=== PATIENT | female | born 1940 | race Hispanic/Latino ===

== ENCOUNTER 2017-09-29 08:43 | Emergency (ER) | payer OTHER, MEDICARE ==
[~2017-09-29 08:43] MED LIST: AEC81 PO; ATOR-2 PO; CARV3.12 PO; CLOP75TA32 PO; FERR325T22 PO; FURO20TA4 PO; GABA-531 PO; GEMF600T3 PO; GLIP5TAB11 PO; LEVO88TA7 PO; LISI2.5T2 PO; LOSA25TA21 PO; ONDA4TAB9 PO; OXYB5POW MC; RANI150C4 PO; SERT50TA12 PO
[2017-09-29] MEDS ORDERED: HYDROCODONE/ACETAMINOPHEN 10/325 MG TAB ONE (08:52)
== END 2017-09-29 10:40 | disposition home or self-care (01) ==
LOC: EDH 08:43
DX: S80.02XA Contusion of left knee, initial encounter (principal); I25.10 Atherosclerotic heart disease of native coronary artery without angina pectoris; E11.9 Type 2 diabetes mellitus without complications; I10 Essential (primary) hypertension; Z98.890 Other specified postprocedural states; X58.XXXA Exposure to other specified factors, initial encounter; Y93.89 Activity, other specified; Y92.098 Other place in other non-institutional residence as the place of occurrence of the external cause; Y99.8 Other external cause status
CPT/HCPCS: 73562

== ENCOUNTER 2017-10-03 13:17 | Emergency (ER) | payer OTHER, MEDICARE ==
[2017-10-03 13:58] LABS: BASOPHILS % (AUTO) 0.8 % (0.0-5.0); EOSINOPHILS % (AUTO) 3.2 % (0.0-8.0); HEMATOCRIT 32.2 % (36-48); LYMPHOCYTES % (AUTO) 13.8 % (21.0-51.0); MEAN CORPUSCULAR HEMOGLOBIN 33.3 pg (27.0-33.0); MEAN CORPUSCULAR HGB CONC 35.6 g/dL (32.0-36.0); MEAN CORPUSCULAR VOLUME 93.5 fL (79-99); MONOCYTES % (AUTO) 8.8 % (3.0-13.0); NEUTROPHILS % (AUTO) 73.4 % (40.0-77.0); PLATELET COUNT (AUTO) 174 K/uL (130-400); RED BLOOD CELL COUNT(AUTO) 3.44 MIL/uL (4.00-5.50); RED CELL DISTRIBUTION WIDTH 13.5 % (11.0-15.5)
[2017-10-03 14:07] LABS: CREATININE 1.7 mg/dL (0.5-1.5); POTASSIUM 4.4 mmol/L (3.5-5.1)
[2017-10-03 14:13] LABS: INR 1.03 (0.85-1.15); PARTIAL THROMBOPLASTIN TIME 25.9 SEC (26.3-35.5); PROTHROMBIN TIME 10.6 SEC (9.6-11.6)
[2017-10-03 14:25] LABS: ALBUMIN 3.4 g/dL (3.5-5.0); BILIRUBIN,TOTAL 0.7 mg/dL (0.2-1.0); CREATINE KINASE MB 1.2 ng/mL (0.5-3.6); TOTAL PROTEIN, SERUM 6.9 g/dL (6.0-8.3)
[2017-10-03] MEDS ORDERED: NITROGLYCERIN 1GM/1 INCH PACKET TD ONE (15:32)
== END 2017-10-03 17:57 | disposition home or self-care (01) ==
LOC: EDH 13:17
DX: R07.89 Other chest pain (principal); I25.10 Atherosclerotic heart disease of native coronary artery without angina pectoris; E11.9 Type 2 diabetes mellitus without complications; I10 Essential (primary) hypertension; Z95.1 Presence of aortocoronary bypass graft
CPT/HCPCS: 36415; 71045; 80053; 82550; 82553; 83874; 84484; 85025; 85610; 85730; 93005; 94761

== ENCOUNTER → 2017-10-23 | Outpatient (CLI) | payer OTHER, MEDICARE ==
[~2017-10-23] MED LIST changes: +REGADENOSON 0.4 MG/5 ML PF SYG IVP SCH
== END | disposition home or self-care (01) ==
LOC: SHCH 08:58
PROVIDERS: ATTEND Internal Medicine Cardiovascular Disease
DX: I51.7 Cardiomegaly (principal)
CPT/HCPCS: 78452; 93017; 96374; A9500 ×2; J2785

== ENCOUNTER 2019-09-08 09:39 | Emergency (ER) | payer OTHER, MEDICARE ==
[~2019-09-08 09:39] MED LIST changes: -CARV3.12 PO; +CARV6.25 PO; +CHOL400C9 PO; +DOCU-282 PO; +FERR240T6 PO; -FERR325T22 PO; -FURO20TA4 PO; -GEMF600T3 PO; -GLIP5TAB11 PO; +LEVO500T2 PO; -LISI2.5T2 PO; -LOSA25TA21 PO; +MIRA25TA PO; -ONDA4TAB9 PO; -OXYB5POW MC; -RANI150C4 PO; +RANO10003 PO; -REGADENOSON 0.4 MG/5 ML PF SYG IVP SCH; -SERT50TA12 PO
[2019-09-08] MEDS ORDERED: ONDANSETRON HCL 4 MG/2 ML VIAL ONE (10:17)
[2019-09-08 10:35] LABS: BASOPHILS % (AUTO) 0.5 % (0.0-5.0); EOSINOPHILS % (AUTO) 2.2 % (0.0-8.0); LYMPHOCYTES % (AUTO) 12.8 % (21.0-51.0); MEAN CORPUSCULAR HEMOGLOBIN 31.6 pg (27.0-33.0); MEAN CORPUSCULAR HGB CONC 32.8 g/dL (32.0-36.0); MEAN CORPUSCULAR VOLUME 96.4 fL (79-99); MONOCYTES % (AUTO) 10.4 % (3.0-13.0); NEUTROPHILS % (AUTO) 73.8 % (40.0-77.0); PLATELET COUNT (AUTO) 156 K/uL (130-400); RED BLOOD CELL COUNT(AUTO) 3.32 MIL/uL (4.00-5.50); RED CELL DISTRIBUTION WIDTH 12.3 % (11.0-15.5)
[2019-09-08 10:45] LABS: CREATININE 1.8 mg/dL (0.5-1.5); POTASSIUM 4.5 mmol/L (3.5-5.1)
[2019-09-08 10:57] LABS: ALBUMIN 2.9 g/dL (3.5-5.0); BILIRUBIN,TOTAL 0.3 mg/dL (0.2-1.0); TOTAL PROTEIN, SERUM 6.4 g/dL (6.0-8.3)
== END 2019-09-08 12:16 | disposition home or self-care (01) ==
LOC: EDH 09:39
DX: R19.7 Diarrhea, unspecified (principal); I25.10 Atherosclerotic heart disease of native coronary artery without angina pectoris; E11.9 Type 2 diabetes mellitus without complications; I10 Essential (primary) hypertension
CPT/HCPCS: 36415; 80053; 82550; 83690; 84484; 85025; 93005; 96361; 96374; 99284; J2405

== ENCOUNTER 2020-08-20 10:18 | Observation (INO) | payer OTHER, MEDICARE ==
[~2020-08-20] VITALS: Ht 172.7 cm; Wt 103.9 kg
[2020-08-20 10:41] LABS: BASOPHILS % (AUTO) 0.5 % (0.0-5.0); EOSINOPHILS % (AUTO) 0.3 % (0.0-8.0); HEMATOCRIT 33.8 % (36-48); LYMPHOCYTES % (AUTO) 7.3 % (21.0-51.0); MEAN CORPUSCULAR HEMOGLOBIN 28.4 pg (27.0-33.0); MEAN CORPUSCULAR HGB CONC 32.5 g/dL (32.0-36.0); MEAN CORPUSCULAR VOLUME 87.1 fL (79-99); MONOCYTES % (AUTO) 7.7 % (3.0-13.0); NEUTROPHILS % (AUTO) 83.7 % (40.0-77.0); PLATELET COUNT (AUTO) 162 K/uL (130-400); RED BLOOD CELL COUNT(AUTO) 3.88 MIL/uL (4.00-5.50); RED CELL DISTRIBUTION WIDTH 14.6 % (11.0-15.5); WHITE BLOOD COUNT (AUTO) 12.1 K/uL (4.8-10.8)
[2020-08-20 10:55] LABS: POTASSIUM 3.9 mmol/L (3.5-5.1)
[2020-08-20 10:56] LABS: INR 1.24 (0.85-1.15); PROTHROMBIN TIME 13.3 SEC (9.6-11.6)
[2020-08-20 10:57] LABS: PARTIAL THROMBOPLASTIN TIME 29.2 SEC (26.3-35.5)
[2020-08-20 11:04] LABS: BILIRUBIN,TOTAL 0.5 mg/dL (0.2-1.0); TOTAL PROTEIN, SERUM 6.7 g/dL (6.0-8.3)
[2020-08-20 11:50] LABS: BILIRUBIN,URINE NEGATIVE (NEGATIVE); COLOR,URINE YELLOW (YELLOW); GLUCOSE, URINE (UA) NEGATIVE (NEGATIVE); KETONES,URINE NEGATIVE (NEGATIVE); LEUKOCYTE ESTERASE ,URINE SMALL (NEGATIVE); NITRATE,URINE NEGATIVE (NEGATIVE); OCCULT BLOOD,URINE SMALL (NEGATIVE); PROTEIN,URINE NEGATIVE (NEGATIVE); UROBILINOGEN,URINE 0.2 mg/dL (0.2-1.0)
[2020-08-20 11:52] LABS: APPEARANCE,URINE CLOUDY (CLEAR)
[2020-08-20 12:04] LABS: BACTERIA,URINE Many /HPF (None Seen)
[2020-08-20] MEDS ORDERED: ACETAMINOPHEN 325 MG TAB ONE (13:22)
[2020-08-20] MEDS ORDERED: CEFTRIAXONE 1G VIAL ONE (14:16)
[2020-08-20] MEDS ORDERED: 0.9%NACL 50ML 50 ML IV ONE (14:17)
[2020-08-20] MEDS ORDERED: POTASSIUM CHLORIDE 10% ELIXIR 20 MEQ/15 ML UDCUP PO PRN (15:15)
[2020-08-20] MEDS ORDERED: MAGNESIUM 2GM PREMIX 50ML 50 ML IV PRN (15:15)
[2020-08-20] MEDS ORDERED: POTASSIUM CHLORIDE 20MEQ/100ML 100 ML IV PRN ×2 (15:15)
[2020-08-20] MEDS ORDERED: LIDOCAINE HCL-MPF 1% 2ML VIAL IV PRN ×2 (15:15)
[2020-08-20] MEDS ORDERED: GLUCAGON 1MG KIT 1 MG ML IM PRN (15:15)
[2020-08-20] MEDS: PANTOPRAZOLE 40 MG TAB DR PO SCH (15:15)
[2020-08-20] MEDS ORDERED: DEXTROSE 50%-WATER 50 ML DISP.SYRIN IV PRN (15:15)
[2020-08-20] MEDS ORDERED: ONDANSETRON 4MG INJ IVP PRN (15:30)
[2020-08-20] MEDS: CARVEDILOL 6.25 MG TABLET PO SCH (17:00)
[2020-08-20] MEDS ORDERED: CARVEDILOL 6.25 MG TABLET PO ONE (17:54)
[2020-08-20] MEDS: ATORVASTATIN 40 MG TABLET PO SCH (21:00)
[2020-08-20] MEDS ORDERED: ATORVASTATIN 40 MG TABLET ONE (21:10)
[2020-08-21] VITALS (7 sets, daily range): BP systolic 135–166; BP diastolic 42–81
[2020-08-21] MEDS ORDERED: CALCIUM CARB 500MG CHEW TAB ONE (01:58)
[2020-08-21] MEDS ORDERED: CALCIUM CARB 500MG CHEW TAB PO PRN (02:00)
[2020-08-21] MEDS: ACETAMINOPHEN 325 MG TAB PO PRN ×2 (02:05→16:41)
[2020-08-21 02:17] LABS: HEMATOCRIT 35.4 % (36-48); MEAN CORPUSCULAR HEMOGLOBIN 28.1 pg (27.0-33.0); MEAN CORPUSCULAR HGB CONC 31.4 g/dL (32.0-36.0); MEAN CORPUSCULAR VOLUME 89.6 fL (79-99); RED BLOOD CELL COUNT(AUTO) 3.95 MIL/uL (4.00-5.50); RED CELL DISTRIBUTION WIDTH 14.6 % (11.0-15.5); WHITE BLOOD COUNT (AUTO) 8.2 K/uL (4.8-10.8)
[2020-08-21 02:30] LABS: HEMOGLOBIN A1C 9.6 % (4.0-6.0)
[2020-08-21 02:40] LABS: ALBUMIN 3.1 g/dL (3.5-5.0); BILIRUBIN,TOTAL 0.4 mg/dL (0.2-1.0); CREATININE 2.2 mg/dL (0.5-1.5); MAGNESIUM 1.6 mg/dL (1.80-2.40); POTASSIUM 3.8 mmol/L (3.5-5.1); THYROID STIMULATING HORMONE 0.35 uIU/mL (0.36-3.74); TOTAL PROTEIN, SERUM 7.2 g/dL (6.0-8.3)
[2020-08-21] MEDS ORDERED: LINA5TAB PO (02:58)
[2020-08-21] MEDS ORDERED: CYAN250014 PO (02:58)
[2020-08-21] MEDS ORDERED: SACU1TAB PO (02:58)
[2020-08-21] MEDS ORDERED: PANT40TA55 PO (02:58)
[2020-08-21] MEDS ORDERED: RIVA2.5T PO (02:58)
[2020-08-21] MEDS ORDERED: CALC-1009 PO (02:58)
[2020-08-21] MEDS: LEVOTHYROXINE 88 MCG TABLET PO SCH (05:52)
[2020-08-21] MEDS: KCL 20 MEQ ERTAB PO PRN ×2 (05:53→18:59)
[2020-08-21] MEDS: INSULIN HUMULIN R 100 UNIT/ML 3ML SQ SCH ×4 (06:42→20:51)
[2020-08-21] MEDS: **HM** ENTRESTO 24-26MG PO SCH ×2 (09:00→20:50)
[2020-08-21] MEDS: **HM** MYRBETRIQ 25MG PO SCH (09:00)
[2020-08-21] MEDS: **HM** VIT D3 400 UNITS PO SCH (09:00)
[2020-08-21] MEDS: PANTOPRAZOLE 40 MG TAB DR PO SCH (10:52)
[2020-08-21] MEDS: CA 600MG+VIT D 400 UNIT TAB 1 TAB TABLET PO SCH (10:52)
[2020-08-21] MEDS: CYANOCOBALAMIN (VITAMIN B-12) 1,000 MCG TABLET PO SCH (10:52)
[2020-08-21] MEDS: CEFTRIAXONE 1G VIAL IV SCH (10:53)
[2020-08-21] MEDS: LINAGLIPTIN 5 MG TABLET PO SCH (10:53)
[2020-08-21] MEDS: GABAPENTIN 300 MG CAPSULE PO SCH ×2 (10:53→20:49)
[2020-08-21] MEDS: ENOXAPARIN SODIUM 40 MG/0.4 ML SYRINGE SQ SCH (10:54)
[2020-08-21] MEDS: CARVEDILOL 6.25 MG TABLET PO SCH ×2 (11:05→16:35)
[2020-08-21] MEDS: ATORVASTATIN 40 MG TABLET PO SCH (20:49)
[2020-08-21] MEDS ORDERED: DOCUSATE SODIUM 100 MG CAP PO SCH (21:00)
[2020-08-22 03:25] VITALS: BP 136/63
[2020-08-22 06:14] LABS: BASOPHILS % (AUTO) 1.1 % (0.0-5.0); EOSINOPHILS % (AUTO) 4.4 % (0.0-8.0); HEMATOCRIT 31.3 % (36-48); LYMPHOCYTES % (AUTO) 30.4 % (21.0-51.0); MEAN CORPUSCULAR HEMOGLOBIN 27.8 pg (27.0-33.0); MEAN CORPUSCULAR HGB CONC 31.9 g/dL (32.0-36.0); MEAN CORPUSCULAR VOLUME 86.9 fL (79-99); MONOCYTES % (AUTO) 17.1 % (3.0-13.0); NEUTROPHILS % (AUTO) 46.8 % (40.0-77.0); PLATELET COUNT (AUTO) 137 K/uL (130-400); RED CELL DISTRIBUTION WIDTH 14.6 % (11.0-15.5); WHITE BLOOD COUNT (AUTO) 5.6 K/uL (4.8-10.8)
[2020-08-22 06:31] LABS: CREATININE 1.7 mg/dL (0.5-1.5); MAGNESIUM 1.7 mg/dL (1.80-2.40); POTASSIUM 4.8 mmol/L (3.5-5.1)
[2020-08-22] MEDS: LEVOTHYROXINE 88 MCG TABLET PO SCH (07:03)
[2020-08-22] MEDS: INSULIN HUMULIN R 100 UNIT/ML 3ML SQ SCH (07:05)
[2020-08-22 08:06] VITALS: BP 129/66
[2020-08-22] MEDS: **HM** ENTRESTO 24-26MG PO SCH (09:00)
[2020-08-22] MEDS: **HM** MYRBETRIQ 25MG PO SCH (09:00)
[2020-08-22] MEDS: **HM** VIT D3 400 UNITS PO SCH (09:00)
[2020-08-22] MEDS: CYANOCOBALAMIN (VITAMIN B-12) 1,000 MCG TABLET PO SCH (11:09)
[2020-08-22] MEDS: CEFTRIAXONE 1G VIAL IV SCH (11:09)
[2020-08-22] MEDS: PANTOPRAZOLE 40 MG TAB DR PO SCH (11:10)
[2020-08-22] MEDS: LINAGLIPTIN 5 MG TABLET PO SCH (11:10)
[2020-08-22] MEDS: GABAPENTIN 300 MG CAPSULE PO SCH (11:10)
[2020-08-22] MEDS: CARVEDILOL 6.25 MG TABLET PO SCH (11:11)
[2020-08-22] MEDS: CA 600MG+VIT D 400 UNIT TAB 1 TAB TABLET PO SCH (11:11)
[2020-08-22] MEDS: ENOXAPARIN SODIUM 40 MG/0.4 ML SYRINGE SQ SCH (11:12)
[2020-08-22 11:21] VITALS: BP 142/48
[2020-08-22] MEDS ORDERED: AMOX-426 PO (11:22)
[2020-08-22] MEDS ORDERED: RIVAROXABAN 2.5 MG TABLET PO SCH (21:00)
[2021-03-12] MEDS ORDERED: LINA5TAB PO (09:34)
[2021-03-12] MEDS ORDERED: CARV25TA PO (09:34)
[2021-03-12] MEDS ORDERED: LEVO88CA4 PO (09:34)
[2021-03-12] MEDS ORDERED: OMEP40CA21 PO (09:34)
[2021-03-12] MEDS ORDERED: HYDR12.54 PO (09:34)
== END 2020-08-22 14:15 | disposition home or self-care (01) ==
LOC: EDH 10:18 → EDHIP 15:16 → 3BH 08-21 00:21
PROVIDERS: ADMIT Internal Medicine; ATTEND Internal Medicine
DX: R42 Dizziness and giddiness (principal); Z20.822 Contact with and (suspected) exposure to COVID-19; N39.0 Urinary tract infection, site not specified; I13.0 Hypertensive heart and chronic kidney disease with heart failure and stage 1 through stage 4 chronic kidney disease, or unspecified chronic kidney disease; E11.22 Type 2 diabetes mellitus with diabetic chronic kidney disease; I50.43 Acute on chronic combined systolic (congestive) and diastolic (congestive) heart failure; N18.9 Chronic kidney disease, unspecified; I25.10 Atherosclerotic heart disease of native coronary artery without angina pectoris; N17.9 Acute kidney failure, unspecified; E78.5 Hyperlipidemia, unspecified; N32.81 Overactive bladder; E11.51 Type 2 diabetes mellitus with diabetic peripheral angiopathy without gangrene; M47.812 Spondylosis without myelopathy or radiculopathy, cervical region; I25.5 Ischemic cardiomyopathy; E66.01 Morbid (severe) obesity due to excess calories; E03.9 Hypothyroidism, unspecified; I25.2 Old myocardial infarction; Z95.1 Presence of aortocoronary bypass graft; Z98.1 Arthrodesis status; Z79.01 Long term (current) use of anticoagulants; Z79.84 Long term (current) use of oral hypoglycemic drugs; Z79.899 Other long term (current) drug therapy; W01.198A Fall on same level from slipping, tripping and stumbling with subsequent striking against other object, initial encounter; Y93.89 Activity, other specified; Y92.002 Bathroom of unspecified non-institutional (private) residence as the place of occurrence of the external cause; Z68.34 Body mass index [BMI] 34.0-34.9, adult
CPT/HCPCS: 36415 ×3; 70450; 71045; 72125; 80048; 80053 ×2; 80061; 81001; 82550; 82948 ×8; 83036; 83605; 83735 ×2; 84443; 84484 ×3; 85025 ×2; 85027; 85610; 85730; 87040 ×2; 87088; 87426; 93005; 96365; 96366; 96372 ×2; 96375; 96376; 99285; G0378 ×47; J0696 ×3; J1650 ×2; J1815 ×2; J3475; U0003

== ENCOUNTER 2020-09-09 21:20 | Inpatient (IN) | payer OTHER, MEDICARE ==
[~2020-09-09] VITALS: Ht 172.7 cm; Wt 107.0 kg
[~2020-09-09 21:20] MED LIST changes: -AEC81 PO; +AMOX-426 PO; +CALC-1009 PO; -CLOP75TA32 PO; +CYAN250014 PO; -FERR240T6 PO; -LEVO500T2 PO; -LEVO88TA7 PO; +LINA5TAB PO; +PANT40TA55 PO; -RANO10003 PO; +RIVA2.5T PO; +SACU1TAB PO
[2020-09-09] MEDS ORDERED: ONDANSETRON 4MG INJ ONE ×2 (21:29→22:30)
[2020-09-09] MEDS ORDERED: 0.9%NACL 1000ML 1,000 ML IV ONE (21:30)
[2020-09-09 21:57] LABS: ABG BASE EXCESS -1.4 mmol/L (-2.0-3.0); ABG HCO3 22.1 mmol/L (21.0-28.0); ABG OXYGEN SATURATION 95.3 % (95.0-99.0); ABG PCO2 34 mmHg (32-45)
[2020-09-09 22:09] LABS: BASOPHILS % (AUTO) 0.4 % (0.0-5.0); MEAN CORPUSCULAR HEMOGLOBIN 28.7 pg (27.0-33.0); MEAN CORPUSCULAR HGB CONC 33.1 g/dL (32.0-36.0); MEAN CORPUSCULAR VOLUME 86.7 fL (79-99); MONOCYTES % (AUTO) 7.3 % (3.0-13.0); NEUTROPHILS % (AUTO) 84.7 % (40.0-77.0); PLATELET COUNT (AUTO) 151 K/uL (130-400); RED BLOOD CELL COUNT(AUTO) 3.69 MIL/uL (4.00-5.50); RED CELL DISTRIBUTION WIDTH 14.4 % (11.0-15.5); WHITE BLOOD COUNT (AUTO) 15.3 K/uL (4.8-10.8)
[2020-09-09 22:20] LABS: APPEARANCE,URINE Clear (CLEAR); BILIRUBIN,URINE Negative (NEGATIVE); COLOR,URINE Yellow (YELLOW); GLUCOSE, URINE (UA) 250 mg/dL (NEGATIVE); KETONES,URINE Negative (NEGATIVE); LEUKOCYTE ESTERASE ,URINE Moderate (NEGATIVE); NITRATE,URINE Negative (NEGATIVE); OCCULT BLOOD,URINE Trace (NEGATIVE); PH,URINE 5.5 (5.0-8.0); PROTEIN,URINE Negative (NEGATIVE); UROBILINOGEN,URINE 0.2 mg/dL (0.2-1.0)
[2020-09-09 22:21] LABS: CREATININE 1.8 mg/dL (0.5-1.5)
[2020-09-09 22:25] LABS: ALBUMIN 3.2 g/dL (3.5-5.0); BILIRUBIN,TOTAL 0.3 mg/dL (0.2-1.0); TOTAL PROTEIN, SERUM 6.9 g/dL (6.0-8.3)
[2020-09-09 22:29] LABS: INR 1.34 (0.85-1.15); PROTHROMBIN TIME 14.2 SEC (9.6-11.6)
[2020-09-09 22:31] LABS: PARTIAL THROMBOPLASTIN TIME 34.5 SEC (26.3-35.5)
[2020-09-09] MEDS ORDERED: ACETAMINOPHEN 500 MG TABLET ONE (22:42)
[2020-09-09 22:56] LABS: BACTERIA,URINE Few /HPF (None Seen)
[2020-09-09] MEDS ORDERED: CEFTRIAXONE 1G VIAL ONE (23:00)
[2020-09-10] VITALS (7 sets, daily range): BP systolic 97–137; BP diastolic 44–56
[2020-09-10] MEDS ORDERED: LORAZEPAM 2 MG/ML 1 ML VIAL ONE (00:10)
[2020-09-10] MEDS ORDERED: 0.9%NACL 1000ML 1,000 ML IV SCH (02:15)
[2020-09-10] MEDS ORDERED: GLUCAGON 1MG KIT 1 MG ML IM PRN (02:15)
[2020-09-10] MEDS ORDERED: DEXTROSE 50%-WATER 50 ML DISP.SYRIN IV PRN (02:15)
[2020-09-10] MEDS ORDERED: AZITHROMYCIN 500MG+NS 250ML 250 ML IV SCH (02:30)
[2020-09-10 03:56] LABS: BASOPHILS % (AUTO) 0.4 % (0.0-5.0); HEMATOCRIT 30.7 % (36-48); LYMPHOCYTES % (AUTO) 3.8 % (21.0-51.0); MEAN CORPUSCULAR HEMOGLOBIN 27.7 pg (27.0-33.0); MEAN CORPUSCULAR HGB CONC 31.9 g/dL (32.0-36.0); MEAN CORPUSCULAR VOLUME 86.7 fL (79-99); MONOCYTES % (AUTO) 8.7 % (3.0-13.0); PLATELET COUNT (AUTO) 151 K/uL (130-400); RED BLOOD CELL COUNT(AUTO) 3.54 MIL/uL (4.00-5.50); RED CELL DISTRIBUTION WIDTH 14.3 % (11.0-15.5); WHITE BLOOD COUNT (AUTO) 25.5 K/uL (4.8-10.8)
[2020-09-10 04:10] LABS: ALBUMIN 2.8 g/dL (3.5-5.0); BILIRUBIN,TOTAL 0.5 mg/dL (0.2-1.0); CREATININE 2.1 mg/dL (0.5-1.5); POTASSIUM 3.9 mmol/L (3.5-5.1); TOTAL PROTEIN, SERUM 6.2 g/dL (6.0-8.3)
[2020-09-10] MEDS: INSULIN R PO SS1 SQ SCH ×4 (06:00→20:59)
[2020-09-10] MEDS ORDERED: INSLAN SQ (10:35)
[2020-09-10] MEDS ORDERED: CEFTRIAXONE 1G VIAL IVP SCH (12:00)
[2020-09-10] MEDS: HEPARIN 5,000 UNIT VIAL SQ SCH (14:00)
[2020-09-10] MEDS ORDERED: PHARMACY COMMUNICATION MISC SCH (14:45)
[2020-09-10] MEDS ORDERED: VANCOMYCIN PROTOCOL PER PHARMACY IV SCH (15:15)
[2020-09-10] MEDS: CARVEDILOL 6.25 MG TABLET PO SCH (16:29)
[2020-09-10] MEDS: ZOSYN 3.375GM+NS 50ML 50 ML IV SCH (16:29)
[2020-09-10] MEDS: PANTOPRAZOLE 40 MG TAB DR PO SCH (16:32)
[2020-09-10] MEDS ORDERED: BENZOCAINE/MENTH/CETYLPYRD CL 1 EACH LOZENGE MM PRN (18:15)
[2020-09-10] MEDS ORDERED: VANCOMYCIN 1G 2 GM in 0.9% NACL 500ML IV.SOLN 500 ML IV ONE (20:00)
[2020-09-10] MEDS: ATORVASTATIN 40 MG TABLET PO SCH (20:58)
[2020-09-10] MEDS ORDERED: NON-FORMULARY MEDICATION 1 EACH (Atorvastatin Calcium 80 MG) PO SCH (21:00)
[2020-09-11] MEDS: HEPARIN 5,000 UNIT VIAL SQ SCH ×2 (02:32→14:12)
[2020-09-11] MEDS: ZOSYN 3.375GM+NS 50ML 50 ML IV SCH ×2 (02:32→14:00)
[2020-09-11 03:09] VITALS: BP 132/56
[2020-09-11 04:18] LABS: HEMATOCRIT 27.8 % (36-48); MEAN CORPUSCULAR HEMOGLOBIN 28.8 pg (27.0-33.0); MEAN CORPUSCULAR HGB CONC 33.1 g/dL (32.0-36.0); MEAN CORPUSCULAR VOLUME 87.1 fL (79-99); RED BLOOD CELL COUNT(AUTO) 3.19 MIL/uL (4.00-5.50); RED CELL DISTRIBUTION WIDTH 14.6 % (11.0-15.5); WHITE BLOOD COUNT (AUTO) 11.8 K/uL (4.8-10.8)
[2020-09-11 04:28] LABS: CRP QUANTITATIVE 94.7 mg/L (0.00-9.0)
[2020-09-11] MEDS: INSULIN R PO SS1 SQ SCH ×4 (05:49→20:45)
[2020-09-11 08:40] VITALS: BP 117/59
[2020-09-11] MEDS: CYANOCOBALAMIN (VITAMIN B-12) 1,000 MCG TABLET PO SCH (08:46)
[2020-09-11] MEDS: CA 600MG+VIT D 400 UNIT TAB 1 TAB TABLET PO SCH (08:46)
[2020-09-11] MEDS: PANTOPRAZOLE 40 MG TAB DR PO SCH (08:53)
[2020-09-11] MEDS: CARVEDILOL 6.25 MG TABLET PO SCH ×2 (08:53→16:56)
[2020-09-11] MEDS: INSULIN GLARGINE 100 UNITS/ML 10 ML VIAL SQ SCH (08:55)
[2020-09-11] MEDS: (Mirabegron (Myrbetriq) 25 MG) PO SCH (09:00)
[2020-09-11] MEDS ORDERED: MIRABEGRON 25 MG PO SCH (09:00)
[2020-09-11] MEDS ORDERED: NON-FORMULARY MEDICATION 1 EACH (Cyanocobalamin (Vitamin B-12) (Vitamin B12) 1,000 MCG) PO SCH (09:00)
[2020-09-11] MEDS ORDERED: PANTOPRAZOLE 40 MG TAB DR PO SCH (09:00)
[2020-09-11 12:00] VITALS: BP 126/48
[2020-09-11 16:00] VITALS: BP 149/58
[2020-09-11] MEDS ORDERED: VANCOMYCIN 500MG+NS 100ML 100 ML IV SCH (18:00)
[2020-09-11 20:00] VITALS: BP 150/64
[2020-09-11] MEDS: ATORVASTATIN 40 MG TABLET PO SCH (20:47)
[2020-09-12] VITALS (7 sets, daily range): BP systolic 109–167; BP diastolic 46–61
[2020-09-12] MEDS ORDERED: ACETAMINOPHEN 325 MG TAB PO PRN ×2 (02:30)
[2020-09-12] MEDS ORDERED: ONDANSETRON 4MG INJ IVP PRN (02:30)
[2020-09-12] MEDS ORDERED: ONDANSETRON 4MG INJ ONE (02:36)
[2020-09-12] MEDS: ZOSYN 3.375GM+NS 50ML 50 ML IV SCH (02:42)
[2020-09-12] MEDS: HEPARIN 5,000 UNIT VIAL SQ SCH ×2 (02:42→16:38)
[2020-09-12] MEDS: ACETAMINOPHEN 325 MG TAB PO PRN ×2 (02:47→16:19)
[2020-09-12 04:58] LABS: MEAN CORPUSCULAR HEMOGLOBIN 28.6 pg (27.0-33.0); MEAN CORPUSCULAR HGB CONC 33.2 g/dL (32.0-36.0); MEAN CORPUSCULAR VOLUME 86.2 fL (79-99); RED BLOOD CELL COUNT(AUTO) 3.25 MIL/uL (4.00-5.50); RED CELL DISTRIBUTION WIDTH 14.5 % (11.0-15.5); WHITE BLOOD COUNT (AUTO) 9.2 K/uL (4.8-10.8)
[2020-09-12 05:12] LABS: CREATININE 1.6 mg/dL (0.5-1.5); MAGNESIUM 1.4 mg/dL (1.80-2.40); POTASSIUM 3.9 mmol/L (3.5-5.1)
[2020-09-12] MEDS: INSULIN R PO SS1 SQ SCH ×4 (05:38→21:07)
[2020-09-12] MEDS: CA 600MG+VIT D 400 UNIT TAB 1 TAB TABLET PO SCH (09:51)
[2020-09-12] MEDS: PANTOPRAZOLE 40 MG TAB DR PO SCH (09:51)
[2020-09-12] MEDS: CYANOCOBALAMIN (VITAMIN B-12) 1,000 MCG TABLET PO SCH (09:51)
[2020-09-12] MEDS: CARVEDILOL 6.25 MG TABLET PO SCH ×2 (09:52→16:37)
[2020-09-12] MEDS: INSULIN GLARGINE 100 UNITS/ML 10 ML VIAL SQ SCH (09:58)
[2020-09-12] MEDS: (Mirabegron (Myrbetriq) 25 MG) PO SCH (09:58)
[2020-09-12] MEDS ORDERED: CEFTRIAXONE 500MG VIAL IV SCH (14:30)
[2020-09-12] MEDS ORDERED: LACTATED RINGERS 1000ML 1,000 ML IV SCH (14:30)
[2020-09-12] MEDS: ATORVASTATIN 40 MG TABLET PO SCH (21:03)
[2020-09-13 04:00] VITALS: BP 156/72
[2020-09-13] MEDS: HEPARIN 5,000 UNIT VIAL SQ SCH ×2 (04:31→13:33)
[2020-09-13 06:03] LABS: ALBUMIN 2.5 g/dL (3.5-5.0); BILIRUBIN,TOTAL 0.4 mg/dL (0.2-1.0); CREATININE 1.6 mg/dL (0.5-1.5); POTASSIUM 3.9 mmol/L (3.5-5.1)
[2020-09-13] MEDS: INSULIN R PO SS1 SQ SCH ×3 (06:09→16:30)
[2020-09-13] MEDS ORDERED: SACU1TAB PO (07:52)
[2020-09-13] MEDS: CA 600MG+VIT D 400 UNIT TAB 1 TAB TABLET PO SCH (07:53)
[2020-09-13] MEDS: PANTOPRAZOLE 40 MG TAB DR PO SCH (07:54)
[2020-09-13] MEDS: (Mirabegron (Myrbetriq) 25 MG) PO SCH (07:54)
[2020-09-13] MEDS: CARVEDILOL 6.25 MG TABLET PO SCH ×2 (07:54→16:43)
[2020-09-13] MEDS: CYANOCOBALAMIN (VITAMIN B-12) 1,000 MCG TABLET PO SCH (07:54)
[2020-09-13 08:00] VITALS: BP 173/81
[2020-09-13] MEDS ORDERED: CEFTRIAXONE 1G VIAL IV SCH (09:00)
[2020-09-13] MEDS: INSULIN GLARGINE 100 UNITS/ML 10 ML VIAL SQ SCH (09:00)
[2020-09-13 12:00] VITALS: BP 154/68
[2020-09-13 13:14] LABS: INR 1.08 (0.85-1.15); PROTHROMBIN TIME 11.7 SEC (9.6-11.6)
[2020-09-13] MEDS ORDERED: RIVA2.5T PO (15:40)
[2020-09-13 16:00] VITALS: BP 180/64
[2020-09-13 16:43] VITALS: BP_SYST 180
[2020-09-13] MEDS ORDERED: **HM**(Sacubitril/Valsartan (Entresto 24 mg-26 mg Tablet PO SCH (21:00)
[2020-09-13] MEDS ORDERED: RIVAROXABAN 2.5 MG TABLET PO SCH (21:00)
[2021-03-12] MEDS ORDERED: LEVO88CA4 PO (09:34)
[2021-03-12] MEDS ORDERED: LINA5TAB PO (09:34)
[2021-03-12] MEDS ORDERED: HYDR12.54 PO (09:34)
[2021-03-12] MEDS ORDERED: CARV25TA PO (09:34)
[2021-03-12] MEDS ORDERED: OMEP40CA21 PO (09:34)
== END 2020-09-13 17:21 | DRG 690 ==
LOC: EDH 21:20 → EDHIP 23:49 → OBSVTOIN 23:49 → 2AH 09-10 00:44 → 4CH 09-11 22:05
PROVIDERS: ADMIT Internal Medicine Critical Care Medicine; ATTEND Internal Medicine Critical Care Medicine
PROC: 02HV33Z Insertion of Infusion Device into Superior Vena Cava, Percutaneous Approach (ICD-10-PCS; principal; 2020-09-13)
DX: N39.0 Urinary tract infection, site not specified (principal); R78.81 Bacteremia; E11.9 Type 2 diabetes mellitus without complications; N32.81 Overactive bladder; Z20.822 Contact with and (suspected) exposure to COVID-19; E66.9 Obesity, unspecified; E78.5 Hyperlipidemia, unspecified; G89.29 Other chronic pain; K21.9 Gastro-esophageal reflux disease without esophagitis; B96.89 Other specified bacterial agents as the cause of diseases classified elsewhere; I10 Essential (primary) hypertension; I25.10 Atherosclerotic heart disease of native coronary artery without angina pectoris; Z79.01 Long term (current) use of anticoagulants; Z68.35 Body mass index [BMI] 35.0-35.9, adult; Z79.4 Long term (current) use of insulin; Z79.899 Other long term (current) drug therapy
CPT/HCPCS: 36415; 36600; 70450; 71045; 80048; 80053; 81001; 82550; 82803; 82948; 83605; 83690; 83735; 84145; 84484; 85025; 85027; 85610; 85730; 86140; 87040; 87077; 87088; 87186; 87426; 87804; 92610; 93005; 93306; 93356; 97039; G0378; J0456; J0696; J1644; J1815; J2060; J2405; J2543; J3370; J7030; J7040; U0003

== ENCOUNTER → 2021-01-10 | Outpatient (CLI) | payer OTHER, MEDICARE ==
[~2021-01-10] MED LIST changes: -AMOX-426 PO; -CHOL400C9 PO; -DOCU-282 PO; -GABA-531 PO; +INSLAN SQ; -LINA5TAB PO
== END | disposition home or self-care (01) ==
LOC: RAH 10:38
PROVIDERS: ATTEND Internal Medicine
DX: L97.509 Non-pressure chronic ulcer of other part of unspecified foot with unspecified severity (principal); L03.115 Cellulitis of right lower limb; M79.604 Pain in right leg; M79.605 Pain in left leg; I70.293 Other atherosclerosis of native arteries of extremities, bilateral legs
CPT/HCPCS: 93925

== ENCOUNTER 2021-03-13 05:36 | Day surgery (SDC) | payer OTHER, MEDICARE ==
[2021-03-07 14:32] LABS: BASOPHILS % (AUTO) 0.7 % (0.0-5.0); EOSINOPHILS % (AUTO) 4.5 % (0.0-8.0); HEMATOCRIT 33.7 % (36-48); LYMPHOCYTES % (AUTO) 20.5 % (21.0-51.0); MEAN CORPUSCULAR HEMOGLOBIN 28.8 pg (27.0-33.0); MEAN CORPUSCULAR VOLUME 89.9 fL (79-99); MONOCYTES % (AUTO) 9.6 % (3.0-13.0); NEUTROPHILS % (AUTO) 64.4 % (40.0-77.0); PLATELET COUNT (AUTO) 187 K/uL (130-400); RED BLOOD CELL COUNT(AUTO) 3.75 MIL/uL (4.00-5.50); WHITE BLOOD COUNT (AUTO) 9.2 K/uL (4.8-10.8)
[2021-03-07 14:33] LABS: APPEARANCE,URINE Turbid (CLEAR); BILIRUBIN,URINE Negative (NEGATIVE); COLOR,URINE Yellow (YELLOW); GLUCOSE, URINE (UA) Negative (NEGATIVE); KETONES,URINE Negative (NEGATIVE); LEUKOCYTE ESTERASE ,URINE Large (NEGATIVE); NITRATE,URINE Positive (NEGATIVE); OCCULT BLOOD,URINE Small (NEGATIVE); PH,URINE 5.5 (5.0-8.0); PROTEIN,URINE Trace mg/dL (NEGATIVE); UROBILINOGEN,URINE 0.2 mg/dL (0.2-1.0)
[2021-03-07 14:40] LABS: INR 1.14 (0.85-1.15); PROTHROMBIN TIME 12.3 SEC (9.6-11.6)
[2021-03-07 14:42] LABS: PARTIAL THROMBOPLASTIN TIME 33.5 SEC (26.3-35.5)
[2021-03-07 14:45] LABS: BACTERIA,URINE Many /HPF (None Seen); MUCUS,URINE Few LPF (None Seen); SQUAMOUS EPITHELIAL CELL,UR Few /HPF (0-2); WBC,URINE 26-50 /HPF (0-1)
[2021-03-07 14:55] LABS: CREATININE 1.6 mg/dL (0.5-1.5); POTASSIUM 4.1 mmol/L (3.5-5.1)
[2021-03-12] MEDS: 0.9%NACL 1000ML 1,000 ML IV SCH (06:30)
[2021-03-13] VITALS (16 sets, daily range): BP systolic 109–156; BP diastolic 45–52
[~2021-03-13] VITALS: Ht 172.7 cm; Wt 96.3 kg
[~2021-03-13 05:36] MED LIST changes: -ATOR-2 PO; -CALC-1009 PO; +CARV25TA PO; -CARV6.25 PO; +CEFTRIAXONE 1G VIAL IVP SCH; -CYAN250014 PO; +HYDR12.54 PO; +LEVO88CA4 PO; +LINA5TAB PO; +OMEP40CA21 PO; -PANT40TA55 PO
[2021-03-13] MEDS: 0.9%NACL 1000ML 1,000 ML IV SCH (06:20)
[2021-03-13] MEDS ORDERED: HEPARIN 10,000 UNIT/10ML (1,000 UNIT/ML) VIAL ONE (08:22)
[2021-03-13] MEDS ORDERED: NITROGLYCERIN 2 MG VIAL IV ONE (08:22)
[2021-03-13] MEDS ORDERED: FENTANYL CITRATE PF 50 MCG/1 ML 2ML VIAL ONE (08:23)
[2021-03-13] MEDS ORDERED: MIDAZOLAM HCL 1 MG/ML 2ML VIAL ONE (08:23)
[2021-03-13] MEDS ORDERED: LIDOCAINE HCL 400MG/20ML VIAL ONE (08:23)
[2021-03-13] MEDS ORDERED: IODIXANOL 320 MG/ML 100 ML VIAL ONE (08:25)
[2021-03-13] MEDS ORDERED: GLUCAGON 1MG KIT 1 MG ML IM PRN (09:30)
[2021-03-13] MEDS ORDERED: HYDRALAZINE 20MG/ML VIAL IV PRN (09:30)
[2021-03-13] MEDS ORDERED: 0.9%NACL 1000ML 1,000 ML IV SCH (09:30)
[2021-03-13] MEDS ORDERED: DEXTROSE 50%-WATER 50 ML DISP.SYRIN IV PRN (09:30)
[2021-03-13] MEDS ORDERED: ATROPINE 1MG SYG IVP ONE (09:34)
[2021-03-13] MEDS ORDERED: INSULIN HUMULIN R 100 UNIT/ML 3ML SQ SCH (11:30)
== END 2021-03-13 15:10 | disposition home or self-care (01) ==
LOC: DAH 05:36
PROVIDERS: ATTEND Internal Medicine Cardiovascular Disease
DX: I70.213 Atherosclerosis of native arteries of extremities with intermittent claudication, bilateral legs (principal); I70.92 Chronic total occlusion of artery of the extremities; E11.51 Type 2 diabetes mellitus with diabetic peripheral angiopathy without gangrene; E11.21 Type 2 diabetes mellitus with diabetic nephropathy; I25.10 Atherosclerotic heart disease of native coronary artery without angina pectoris; I11.0 Hypertensive heart disease with heart failure; I50.42 Chronic combined systolic (congestive) and diastolic (congestive) heart failure; E78.49 Other hyperlipidemia; E03.9 Hypothyroidism, unspecified; M19.90 Unspecified osteoarthritis, unspecified site; E66.01 Morbid (severe) obesity due to excess calories; Z68.31 Body mass index [BMI] 31.0-31.9, adult; Z79.82 Long term (current) use of aspirin; Z83.3 Family history of diabetes mellitus; Z82.49 Family history of ischemic heart disease and other diseases of the circulatory system; Z95.1 Presence of aortocoronary bypass graft; Z79.899 Other long term (current) drug therapy; Z79.01 Long term (current) use of anticoagulants; Z98.890 Other specified postprocedural states
CPT/HCPCS: 36246; 36415; 71045; 75716; 80048; 81001; 82948 ×2; 85025; 85610; 85730; 87077; 87088; 87186; 93005; A4215; A4216; A4221; A4222; A4223 ×3; A4335; A4554; A4606; A4663; C1769; C1894 ×2; J1644; J2250; J3010; J3490 ×2; J7030; Q9967; 99156; 99157; J0461

== ENCOUNTER → 2021-12-12 | Outpatient (CLI) | payer OTHER, MEDICARE ==
[~2021-12-12] MED LIST changes: -CEFTRIAXONE 1G VIAL IVP SCH
== END | disposition home or self-care (01) ==
LOC: SHCH 07:37
PROVIDERS: ATTEND Internal Medicine Cardiovascular Disease
DX: I25.10 Atherosclerotic heart disease of native coronary artery without angina pectoris (principal); R06.02 Shortness of breath
CPT/HCPCS: 93306; 93978

== ENCOUNTER → 2022-07-23 | Outpatient (CLI) | payer OTHER, MEDICARE | END | disposition home or self-care (01) | LOC: RAH 09:32 | PROVIDERS: ATTEND Internal Medicine | DX: K57.10 Diverticulosis of small intestine without perforation or abscess without bleeding (principal); K21.9 Gastro-esophageal reflux disease without esophagitis | CPT/HCPCS: 74240 ==

== ENCOUNTER 2022-11-14 18:46 | Emergency (ER) | payer OTHER, MEDICARE ==
[~2022-11-14] VITALS: Ht 172.7 cm; Wt 82.6 kg
[2022-11-14 19:29] LABS: BASOPHILS % (AUTO) 0.4 % (0.0-5.0); EOSINOPHILS % (AUTO) 1.4 % (0.0-8.0); HEMATOCRIT 31.9 % (36-48); LYMPHOCYTES % (AUTO) 7.6 % (21.0-51.0); MEAN CORPUSCULAR HEMOGLOBIN 29.4 pg (27.0-33.0); MEAN CORPUSCULAR HGB CONC 33.2 g/dL (32.0-36.0); MEAN CORPUSCULAR VOLUME 88.4 fL (79-99); MONOCYTES % (AUTO) 13.4 % (3.0-13.0); NEUTROPHILS % (AUTO) 76.5 % (40.0-77.0); PLATELET COUNT (AUTO) 138 K/uL (130-400); RED BLOOD CELL COUNT(AUTO) 3.61 MIL/uL (4.00-5.50); RED CELL DISTRIBUTION WIDTH 14.3 % (11.0-15.5); WHITE BLOOD COUNT (AUTO) 11.9 K/uL (4.8-10.8)
[2022-11-14 19:34] LABS: CREATININE 1.6 mg/dL (0.5-1.5)
[2022-11-14 19:39] LABS: ALBUMIN 3.1 g/dL (3.5-5.0); TOTAL PROTEIN, SERUM 6.5 g/dL (6.0-8.3)
[2022-11-14 20:11] VITALS: BP 115/60
[2022-11-14 20:31] LABS: INR 1.22 (0.85-1.15); PROTHROMBIN TIME 13.1 SEC (9.6-11.6)
[2022-11-14 20:33] LABS: PARTIAL THROMBOPLASTIN TIME 40.4 SEC (26.3-35.5)
[2022-11-14 20:54] LABS: APPEARANCE,URINE CLOUDY (CLEAR); BILIRUBIN,URINE NEGATIVE (NEGATIVE); COLOR,URINE LIGHT-YELLOW (YELLOW); GLUCOSE, URINE (UA) NEGATIVE (NEGATIVE); KETONES,URINE NEGATIVE (NEGATIVE); LEUKOCYTE ESTERASE ,URINE 500 Leu/uL (NEGATIVE); NITRATE,URINE NEGATIVE (NEGATIVE); OCCULT BLOOD,URINE LARGE (NEGATIVE); PH,URINE 5.5 (5.0-8.0); PROTEIN,URINE 20 mg/dL (NEGATIVE); UROBILINOGEN,URINE 0.2 mg/dL (0.2-1.0)
[2022-11-14 21:04] LABS: BACTERIA,URINE RARE /HPF (None Seen); MUCUS,URINE RARE LPF (None Seen); RBC,URINE TNTC /HPF (0-1); SQUAMOUS EPITHELIAL CELL,UR RARE /HPF (0-2); WBC,URINE TNTC /HPF (0-1)
[2022-11-14] MEDS ORDERED: CEFU500T67 PO (21:10)
== END 2022-11-14 21:16 | disposition home or self-care (01) ==
LOC: EDH 18:46
DX: N39.0 Urinary tract infection, site not specified (principal); R31.9 Hematuria, unspecified; I10 Essential (primary) hypertension; E11.9 Type 2 diabetes mellitus without complications; E78.00 Pure hypercholesterolemia, unspecified; Z79.01 Long term (current) use of anticoagulants; Z79.899 Other long term (current) drug therapy; Z87.440 Personal history of urinary (tract) infections
CPT/HCPCS: 99284; 87635; 82550; 84484; 80053; 85025; 85610; 85730; 87040 ×2; 87077; 87088; 87186; 87804 ×2; 83605; 81001; 36415; C9803

== ENCOUNTER → 2023-08-06 | Outpatient (CLI) | payer OTHER, MEDICARE ==
[~2023-08-06] MED LIST changes: +CEFU500T67 PO
== END | disposition home or self-care (01) ==
LOC: RAH 10:14
PROVIDERS: ATTEND Internal Medicine
DX: N39.0 Urinary tract infection, site not specified (principal); Z16.12 Extended spectrum beta lactamase (ESBL) resistance
CPT/HCPCS: 76770

== ENCOUNTER → 2023-10-07 | Outpatient (CLI) | payer OTHER, MEDICARE ==
[2023-10-07 12:32] LABS: CREATININE 1.7 mg/dL (0.5-1.0); POTASSIUM 4.2 mmol/L (3.5-5.1)
== END | disposition home or self-care (01) ==
LOC: LAB 11:06
PROVIDERS: ATTEND Internal Medicine Cardiovascular Disease
DX: I25.10 Atherosclerotic heart disease of native coronary artery without angina pectoris (principal); I25.5 Ischemic cardiomyopathy
CPT/HCPCS: 36415; 80048; 83880

== ENCOUNTER → 2024-01-25 | Outpatient (CLI) | payer OTHER, MEDICARE | END | disposition home or self-care (01) | LOC: RAH 10:06 | PROVIDERS: ATTEND Internal Medicine Gastroenterology | DX: R11.2 Nausea with vomiting, unspecified (principal); R68.81 Early satiety; R10.10 Upper abdominal pain, unspecified | CPT/HCPCS: 78264; A9541 ==

== ENCOUNTER → 2024-02-15 | Outpatient (CLI) | payer OTHER, MEDICARE | END | disposition home or self-care (01) | LOC: RAH 09:54 | PROVIDERS: ATTEND Internal Medicine | DX: K21.00 Gastro-esophageal reflux disease with esophagitis, without bleeding (principal); K57.30 Diverticulosis of large intestine without perforation or abscess without bleeding; R11.2 Nausea with vomiting, unspecified; R10.10 Upper abdominal pain, unspecified; R68.81 Early satiety | CPT/HCPCS: 74240 ==

== ENCOUNTER → 2024-06-24 | Outpatient (CLI) | payer MEDICARE ==
[2024-06-24 15:08] LABS: BASOPHILS # (AUTO) 0.06 K/uL (0.00-0.20); BASOPHILS % (AUTO) 0.6 % (0.0-5.0); EOSINOPHILS # (AUTO) 0.16 K/uL (0.00-0.70); EOSINOPHILS % (AUTO) 1.5 % (0.0-8.0); HEMATOCRIT 33.6 % (36-48); IMMATURE GRANULOCYTE ABSOLUTE 0.06 K/uL (0-1); LYMPHOCYTES # (AUTO) 2.2 K/uL (1.0-4.8); LYMPHOCYTES % (AUTO) 20.5 % (21.0-51.0); MEAN CORPUSCULAR HGB CONC 32.7 g/dL (32.0-36.0); MEAN CORPUSCULAR VOLUME 91.6 fL (79-99); MONOCYTES # (AUTO) 1.1 K/uL (0.1-1.0); MONOCYTES % (AUTO) 10.3 % (3.0-13.0); NEUTROPHILS # (AUTO) 7.2 K/uL (1.8-7.7); NEUTROPHILS % (AUTO) 66.5 % (40.0-77.0); PLATELET COUNT (AUTO) 180 K/uL (130-400); RED BLOOD CELL COUNT(AUTO) 3.67 MIL/uL (4.00-5.50); RED CELL DISTRIBUTION WIDTH 13.4 % (11.0-15.5); WHITE BLOOD COUNT (AUTO) 10.8 K/uL (4.8-10.8)
[2024-06-24 15:25] LABS: ALBUMIN 3.2 g/dL (3.5-5.0); BILIRUBIN,TOTAL 0.6 mg/dL (0.2-1.0); CREATININE 1.9 mg/dL (0.5-1.0); POTASSIUM 4.2 mmol/L (3.5-5.1); TOTAL PROTEIN, SERUM 6.3 g/dL (6.0-8.3)
== END | disposition home or self-care (01) ==
LOC: LAB 13:38
PROVIDERS: ATTEND Internal Medicine Cardiovascular Disease
DX: I25.10 Atherosclerotic heart disease of native coronary artery without angina pectoris (principal); I13.0 Hypertensive heart and chronic kidney disease with heart failure and stage 1 through stage 4 chronic kidney disease, or unspecified chronic kidney disease; I50.22 Chronic systolic (congestive) heart failure; E11.22 Type 2 diabetes mellitus with diabetic chronic kidney disease; N18.30 Chronic kidney disease, stage 3 unspecified
CPT/HCPCS: 36415; 80053; 83880; 84484; 85025

== ENCOUNTER → 2024-07-07 | Outpatient (CLI) | payer MEDICARE ==
[2024-07-07 12:49] LABS: ALBUMIN 3.1 g/dL (3.5-5.0); BILIRUBIN,TOTAL 0.5 mg/dL (0.2-1.0); POTASSIUM 4.2 mmol/L (3.5-5.1); TOTAL PROTEIN, SERUM 6.5 g/dL (6.0-8.3)
== END | disposition home or self-care (01) ==
LOC: LAB 11:00
PROVIDERS: ATTEND Internal Medicine Cardiovascular Disease
DX: R06.02 Shortness of breath (principal)
CPT/HCPCS: 36415; 80053